=== PATIENT | female | born 1945 | race Asian ===

== ENCOUNTER → 2018-02-18 15:42 | Outpatient (CLI) | payer MEDICARE, SELFPAY ==
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
== END ==
PROVIDERS: Family Provider Internal Medicine; PCP Internal Medicine; Visit Provider Student in an Organized Health Care Education/Training Program
DX: M54.2 Cervicalgia (principal); M54.6 Pain in thoracic spine; I51.7 Cardiomegaly; R05 Cough; M50.322 Other cervical disc degeneration at C5-C6 level; M47.812 Spondylosis without myelopathy or radiculopathy, cervical region; M48.02 Spinal stenosis, cervical region; M51.36 Other intervertebral disc degeneration, lumbar region
CPT/HCPCS: 71046; 72050; 72072; 72100

== ENCOUNTER → 2018-02-25 10:17 | Outpatient (CLI) | payer MEDICARE, SELFPAY ==
[2018-02-25 11:02] LABS: Alanine Aminotransferase 33 IU/L (9-52); Albumin 4.8 g/dL (3.5-5.0); Albumin Globulin Ratio 1.3 (1.0-2.8); Alkaline Phosphatase 58 U/L (38-126); Aspartate Aminotransferase 35 IU/L (14-36); BUN Creatinine Ratio 18.8 (6-22); Bilirubin Total 0.5 mg/dL (0.2-1.3); Blood Urea Nitrogen 15 mg/dL (7-17); Calcium 9.7 mg/dL (8.4-10.2); Carbon Dioxide 32 mmol/L (22-32); Chloride 100 mmol/L (98-107); Cholesterol 142 mg/dL (140-199); Estimated Glomerular Filt Rate > 60.0 mL/min (>60); Globulin 3.8 g/dL (1.7-4.1); Glucose 111 mg/dL (80-110); HDL Cholesterol 47 mg/dL (40-60); HEMOLYSIS < 15 (0-50); LDL Cholesterol Calculated 73 mg/dL (<100); Magnesium 2.1 mg/dL (1.6-2.3); Potassium 4.6 mmol/L (3.4-5.1); Sodium 143 mmol/L (137-145); Total Protein 8.6 g/dL (6.3-8.2); Triglycerides 110 mg/dL (35-150)
[2018-02-25 11:31] LABS: Thyroid Stimulating Hormone 0.93 uIU/mL (0.47-4.68)
== END ==
PROVIDERS: Family Provider Internal Medicine; PCP Internal Medicine; Visit Provider Internal Medicine Cardiovascular Disease
DX: R00.2 Palpitations (principal); I47.1 Supraventricular tachycardia; I49.3 Ventricular premature depolarization; E78.5 Hyperlipidemia, unspecified; I10 Essential (primary) hypertension
CPT/HCPCS: 36415; 80053; 80061; 83735; 84443

== ENCOUNTER → 2018-05-19 10:00 | Outpatient (CLI) | payer MEDICARE, SELFPAY ==
[2018-05-19 11:07] LABS: Hemoglobin A1C% w Est Avg Glu 5.4 % (4.0-6.0)
[2018-05-19 11:14] LABS: Glucose 98 mg/dL (80-110)
[2018-05-21 15:55] LABS: BUN Creatinine Ratio 21.4 (6-22); Blood Urea Nitrogen 15 mg/dL (7-17); Carbon Dioxide 31 mmol/L (22-32); Chloride 101 mmol/L (98-107); Estimated Glomerular Filt Rate > 60.0 mL/min (>60); HEMOLYSIS < 15 (0-50); Potassium 4.9 mmol/L (3.4-5.1); Sodium 142 mmol/L (137-145)
== END ==
PROVIDERS: PCP Internal Medicine; Visit Provider Internal Medicine
DX: R73.01 Impaired fasting glucose (principal)
CPT/HCPCS: 36415; 80048; 82947; 83036

== ENCOUNTER → 2019-03-18 09:27 | Outpatient (CLI) | payer MEDICARE, SELFPAY ==
[2019-03-18 11:18] LABS: Alanine Aminotransferase 21 IU/L (<35); Aspartate Aminotransferase 34 IU/L (14-36); BUN Creatinine Ratio 21.4 (6-22); Blood Urea Nitrogen 15 mg/dL (7-17); Calcium 9.4 mg/dL (8.4-10.2); Carbon Dioxide 33 mmol/L (22-32); Chloride 100 mmol/L (98-107); Cholesterol 160 mg/dL (140-199); Estimated Glomerular Filt Rate > 60.0 mL/min (>60); Glucose 99 mg/dL (80-110); HDL Cholesterol 60 mg/dL (40-60); HEMOLYSIS < 15 (0-50); LDL Cholesterol Calculated 85 mg/dL (<100); Potassium 3.5 mmol/L (3.4-5.1); Sodium 141 mmol/L (137-145); Triglycerides 76 mg/dL (35-150)
== END ==
PROVIDERS: PCP Internal Medicine; Visit Provider Internal Medicine
DX: M85.851 Other specified disorders of bone density and structure, right thigh (principal); Z78.0 Asymptomatic menopausal state; E78.00 Pure hypercholesterolemia, unspecified; I10 Essential (primary) hypertension; Z90.722 Acquired absence of ovaries, bilateral; Z87.891 Personal history of nicotine dependence
CPT/HCPCS: 36415; 77080; 80048; 80061; 84450; 84460

== ENCOUNTER → 2020-01-29 15:17 | Outpatient (CLI) | payer MEDICARE, OTHER, SELFPAY ==
[2020-01-29 15:32] LABS: Bacteria Urine None Seen
[2020-01-29 17:46] LABS: Appearance Urine UA CLEAR; Bilirubin Urine UA NEGATIVE (NEGATIVE); Color Urine UA YELLOW; Glucose Urine UA NEGATIVE (Negative); Ketones Urine UA NEGATIVE (NEGATIVE); Leukocyte Esterase Urine UA NEGATIVE (NEGATIVE); Nitrite Urine UA NEGATIVE (Negative); Occult Blood Urine UA TRACE-INTACT (Negative); Protein Urine UA NEGATIVE (Negative); Urobilinogen Urine UA 0.2 E.U./dL (0.2)
[2020-01-29 17:52] LABS: Culture Indicated Urine Cult Not Indicated; RBC Urine 1-5/HPF (0-5/HPF); Squamous Epithelial Cell Urine 0-1 /HPF (0-5/HPF); WBC Urine 0-1/HPF (0-5/HPF)
== END ==
PROVIDERS: PCP Internal Medicine; Referring Provider Urology; Visit Provider Urology
DX: R39.9 Unspecified symptoms and signs involving the genitourinary system (principal)
CPT/HCPCS: 81001

== ENCOUNTER → 2021-01-20 14:41 | Outpatient (CLI) | payer MEDICARE, OTHER, SELFPAY ==
--- NOTE | 2021-01-20 | DI.RAD.S_ITS ---
PROCEDURE: XR DEXA AXIAL SKELETON INDICATIONS: Age-related osteoporosis without current pathologi COMPARISON: [facility], CR, XR DEXA AXIAL SKELETON, 03/18/2019, 9:55. FINDINGS: This blank DEXA report has been sent in error by the PACS system. The correct and complete report will be forthcoming in 1-2 days. Thank you for your patience and understanding. Dictated by: Giovanni Jimenes M.D. on 01/20/2021 at 16:39 Approved by: Giovanni Jimenes M.D. on 01/20/2021 at 16:39
--- NOTE | 2021-01-20 | DI.MG.S_ITS ---
BILATERAL DIGITAL SCREENING MAMMOGRAM 3D/2D WITH CAD: 01/20/2021 CLINICAL: Routine screening. Comparison is made to exams dated: 02/20/2017 mammogram, 03/22/2015 mammogram, and 11/13/2012 mammogram - [facility]. The tissue of both breasts is heterogeneously dense. This may lower the sensitivity of mammography. Current study was also evaluated with a Computer Aided Detection (CAD) system. No significant masses, calcifications, or other findings are seen in either breast. There has been no significant interval change. IMPRESSION: NEGATIVE There is no mammographic evidence of malignancy. A 1 year screening mammogram is recommended. This exam was interpreted at Station ID: [id number]. NOTE: For mammograms, a report in lay terms will be sent to the patient. Approximately 15% of breast malignancies will not be visualized mammographically. In the management of a palpable breast mass, a negative mammogram must not discourage biopsy of a clinically suspicious lesion. Electronically Signed By: Marianela morales/paul:01/20/2021 16:25:42 letter sent: Normal Exam ACR BI-RADS Category 1: Negative 3341F
== END ==
PROVIDERS: PCP Internal Medicine; Referring Provider Internal Medicine; Visit Provider Internal Medicine
DX: M81.0 Age-related osteoporosis without current pathological fracture (principal); Z12.31 Encounter for screening mammogram for malignant neoplasm of breast; Z78.0 Asymptomatic menopausal state; Z90.722 Acquired absence of ovaries, bilateral; Z87.891 Personal history of nicotine dependence
CPT/HCPCS: 77063; 77067; 77080

== ENCOUNTER → 2021-09-26 09:37 | Outpatient (CLI) | payer MEDICARE, OTHER, SELFPAY ==
[2021-09-26 10:48] LABS: Hematocrit 38.5 % (36-46); Hemoglobin 12.5 g/dL (12.0-16.0); Mean Corpuscular HGB Conc 32.4 % (30-36); Mean Corpuscular Hemoglobin 28.6 PG (26-34); Mean Corpuscular Volume 88.4 fL (80-100); Platelet Count 322 X10^3/uL (150-400); Red Blood Cell Count 4.35 X10^6/uL (4.0-5.2); Red Cell Distribution Width 13.6 % (11.6-14.8); White Blood Cell Count 4.9 X10^3/uL (4.5-11.0)
[2021-09-26 12:03] LABS: Alanine Aminotransferase 20 IU/L (<35); Albumin 4.4 g/dL (3.5-5.0); Albumin Globulin Ratio 1.3 (1.0-2.8); Alkaline Phosphatase 44 U/L (38-126); Aspartate Aminotransferase 33 IU/L (14-36); BUN Creatinine Ratio 21.9 (6-22); Bilirubin Total 0.7 mg/dL (0.2-1.3); Blood Urea Nitrogen 16 mg/dL (7-17); Calcium 8.8 mg/dL (8.4-10.2); Carbon Dioxide 29 mmol/L (22-32); Chloride 105 mmol/L (98-107); Cholesterol 170 mg/dL (140-199); Estimated Glomerular Filt Rate > 60 mL/min (>60); Globulin 3.5 g/dL (1.7-4.1); Glucose 103 mg/dL (80-110); HDL Cholesterol 57 mg/dL (40-60); HEMOLYSIS < 15 (0-50); LDL Cholesterol Calculated 88 mg/dL (<100); Potassium 3.6 mmol/L (3.4-5.1); Sodium 141 mmol/L (137-145); Total Protein 7.9 g/dL (6.3-8.2); Triglycerides 126 mg/dL (35-150)
[2021-09-26 12:16] LABS: Vitamin D 25 Hydroxy (D3) 47.1 ng/mL (30.0-100.0)
[2021-09-26 12:29] LABS: TSH w/ Reflex to FT4 1.43 uIU/mL (0.47-4.68)
== END ==
PROVIDERS: PCP Internal Medicine; Referring Provider Internal Medicine; Visit Provider Internal Medicine
DX: E78.2 Mixed hyperlipidemia (principal); M81.0 Age-related osteoporosis without current pathological fracture; I10 Essential (primary) hypertension
CPT/HCPCS: 36415; 80053; 80061; 82306; 84443; 85027

== ENCOUNTER → 2022-02-05 15:13 | Outpatient (CLI) | payer MEDICARE, OTHER, SELFPAY ==
[2022-02-05 17:22] LABS: Magnesium 2.2 mg/dL (1.6-2.3)
[2022-02-05 18:14] LABS: Thyroid Stimulating Hormone 1.06 uIU/mL (0.47-4.68)
== END ==
PROVIDERS: PCP Internal Medicine; Referring Provider Nurse Practitioner Family; Visit Provider Nurse Practitioner Family
DX: I47.1 Supraventricular tachycardia (principal); R00.2 Palpitations; I49.3 Ventricular premature depolarization; I10 Essential (primary) hypertension
CPT/HCPCS: 36415; 83735; 84443

== ENCOUNTER → 2022-04-23 09:16 | Outpatient (CLI) | payer MEDICARE, OTHER, SELFPAY ==
--- NOTE | 2022-07-22 09:45 | DI.ECHO.S_ITS ---
Interpretation Summary The left ventricle is normal in size and wall thickness. The ejection fraction is estimated to be 70-75%. Normal RV size and function. There is moderate mitral regurgitation. Previously trivial MR. No pulmonary with systolic reversal. There is moderate tricuspid regurgitation. Previously mild to moderate TR. The right ventricular systolic pressure is estimated to be at least 28 mmHg based on an estimated right atrial pressure of 3 mm Hg. Procedure: A two-dimensional transthoracic echocardiogram with color flow and Doppler was performed. The patient was in sinus bradycardia with heart rates between 53-62 bpm during the exam. Left Ventricle: The left ventricle is normal in size and wall thickness. There is no echo evidence for significant left ventricular outflow tract obstruction. There is no thrombus. The ejection fraction is estimated to be 70-75%. There are no focal wall motion abnormalities. MV E/A: 1.1 Med Peak E' Matthew: 5.8 cm/sec E/E' med: 19.5. Right Ventricle: The right ventricle is normal in size and function. Atria: The left atrial size is normal. Right atrial size is normal. There is no Doppler evidence for an interatrial shunt. Mitral Valve: The mitral valve leaflets appear mildly thickened, but open well. There is no evidence of mitral valve prolapse. There is no vegetation seen on the mitral valve. There is moderate mitral regurgitation. Compared to the prior echo study, there has been an increase in the severity of mitral regurgitation. Aortic Valve: The aortic valve is normal in structure and function. There is mild aortic valve sclerosis. The aortic valve is trileaflet. There is no aortic valve stenosis. There is trace aortic regurgitation. Tricuspid Valve: The tricuspid valve is normal. There is moderate tricuspid regurgitation. The right ventricular systolic pressure is estimated to be at least 28 mmHg based on an estimated right atrial pressure of 3 mm Hg. Pulmonic Valve: The pulmonic valve leaflets are thin and pliable; valve motion is normal. There is trace pulmonic regurgitation. Great Vessels: The aortic root is normal size. The dimensions of the ascending aorta are normal. The IVC is of normal diameter and collapses greater than 50% with a sniff. This suggests a low right atrial pressure of 3 mm Hg. Pericardium/ Pleura There is no pericardial effusion. There is an anterior echo-free space consistent with a fat pad. There is no pleural effusion. MMode/2D Measurements & Calculations LVIDd: 4.1 cm LVOT diam: 1.8 cm LVIDs: 2.4 cm Ao root diam: 2.9 cm FS: 41.5 % asc Aorta Diam: 3.4 cm EPSS: 0.30 cm Ao Arch Diam (Prox Trans): 2.1 cm IVSd: 0.90 cm LVPWd: 0.90 cm LV ayala. diameter/BSA (cm/m^2): 2.7 LV sys. diameter/BSA (cm/m^2): 1.6 LA dimension: 3.8 cm RA long axis: 3.9 cm LA A2 area: 15.5 cm2 RA area: 12.3 cm2 LA A4 area: 15.8 cm2 RA vol: 33.4 ml LA length (vol): 4.8 cm RA : 21.7 ml/m2 LA vol: 43.2 ml LA vol index: 28.1 ml/m2 LVLs ap4: 3.8 cm LVLd ap2: 6.1 cm LVLs ap2: 4.4 cm TAPSE_phl: 2.1 cm Doppler Measurements & Calculations Ao V2 max: 123.0 cm/sec LVOT Max Matthew: 80.0 cm/sec Ao V2 mean: 83.0 cm/sec LV V1 max P.6 mmHg Ao max P.0 mmHg LV V1 VTI: 18.8 cm Ao mean P.0 mmHg GILBERTO(I,D): 1.6 cm2 Ao V2 VTI: 29.1 cm GILBERTO(V,D): 1.7 cm2 sev ratio: 0.65 GILBERTO indexed to BSA (cm^2/m^2): 1.1 MV E max matthew: 113.0 cm/sec TR max matthew: 251.0 cm/sec MV A max matthew: 99.0 cm/sec TR max P.2 mmHg MV E/A: 1.1 PA V2 max: 70.7 cm/sec Med Peak E' Matthew: 5.8 cm/sec PA V2 mean: 51.2 cm/sec E/E' med: 19.5 PA mean P.0 mmHg Lat Peak E' Matthew: 8.5 cm/sec E/E' lat: 13.3 E/e' average: 16.4 MV dec time: 0.24 sec MVA(VTI): 1.5 cm2 MV V2 mean: 51.0 cm/sec MR VTI: 191.0 cm MV mean P.0 mmHg MV V2 VTI: 32.8 cm SV(LVOT): 47.8 ml AV VR_phl: 0.65 GILBERTO(VTI)/BSA_phl: 1.1 MV P1/2t-pr_phl: 70.0 msec Reading Physician:10:05 AM
== END ==
PROVIDERS: PCP Internal Medicine; Referring Provider Nurse Practitioner Family; Visit Provider Nurse Practitioner Family
DX: I08.3 Combined rheumatic disorders of mitral, aortic and tricuspid valves (principal); I47.1 Supraventricular tachycardia; I49.3 Ventricular premature depolarization; I10 Essential (primary) hypertension; R00.2 Palpitations
CPT/HCPCS: 93306

== ENCOUNTER → 2022-05-23 11:25 | Outpatient (CLI) | payer MEDICARE, OTHER, SELFPAY ==
[2022-05-23 12:36] LABS: BUN Creatinine Ratio 20.2 (6-22); Blood Urea Nitrogen 17 mg/dL (7-17); Calcium 9.3 mg/dL (8.4-10.2); Carbon Dioxide 31 mmol/L (22-32); Chloride 102 mmol/L (98-107); Estimated Glomerular Filt Rate > 60 mL/min (>60); Glucose 98 mg/dL (80-110); HEMOLYSIS < 15 (0-50); Magnesium 2.1 mg/dL (1.6-2.3); Potassium 4.4 mmol/L (3.4-5.1); Sodium 140 mmol/L (137-145)
== END ==
PROVIDERS: PCP Internal Medicine; Referring Provider Internal Medicine Cardiovascular Disease; Visit Provider Internal Medicine Cardiovascular Disease
DX: I10 Essential (primary) hypertension (principal); R00.2 Palpitations
CPT/HCPCS: 36415; 80048; 83735

== ENCOUNTER → 2022-05-30 12:16 | Outpatient (CLI) | payer MEDICARE, OTHER, SELFPAY | PROVIDERS: PCP Internal Medicine; Visit Provider Registered Nurse | DX: R39.15 Urgency of urination (principal) | CPT/HCPCS: 87086 ==

== ENCOUNTER → 2022-06-14 12:08 | Outpatient (CLI) | payer MEDICARE, OTHER, SELFPAY ==
--- NOTE | 2022-06-14 12:10 | DI.MRI.S_ITS ---
PROCEDURE: MR HEAD/BRAIN WO CON INDICATIONS: Family hx of ischemic heart disease, headache TECHNIQUE: Non-contrast axial T1 spin echo, axial T2 fast spin echo, sagittal and axial FLAIR, coronal T2 fast spin echo, axial gradient echo, axial diffusion and ADC through the brain. COMPARISON: None. FINDINGS: Image quality: Excellent. CSF spaces: Ventricles appear symmetric in size and shape. Basal cisterns are patent. No extra-axial fluid collections. Brain: No intracranial bleeds or mass effects. There is cerebral volume loss for age. There are periventricular and deep white matter chronic small vessel ischemic changes. Brainstem appears normal. Diffusion-weighted images show no acute ischemic insults. No chronic ischemic insults. Normal intravascular flow voids are present. Skull and face: Calvarial bone marrow is normal in signal. Orbits are normal. Sinuses: Sinuses and mastoids are clear. IMPRESSION: 1. Volume loss and small vessel ischemic disease. 2. No acute process. No recent infarct. Dictated by: Janis Elizalde M.D. on 06/14/2022 at 13:56 Transcribed by: CHRISTA on 06/14/2022 at 13:56 Approved by: Janis Elizalde M.D. on 06/14/2022 at 16:36
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
== END ==
PROVIDERS: PCP Internal Medicine; Referring Provider Internal Medicine; Visit Provider Internal Medicine
DX: R51.9 Headache, unspecified (principal); Z82.49 Family history of ischemic heart disease and other diseases of the circulatory system
CPT/HCPCS: 70544; 70551

== ENCOUNTER → 2022-06-26 11:02 | Outpatient (CLI) | payer MEDICARE, OTHER, SELFPAY ==
--- NOTE | 2022-06-26 | DI.MG.S_ITS ---
BILATERAL DIGITAL SCREENING MAMMOGRAM 3D/2D WITH CAD: 06/26/2022 CLINICAL: Routine screening. Comparison is made to exams dated: 01/20/2021 mammogram, 02/20/2017 mammogram, and 03/22/2015 mammogram - [facility]. Both breasts are heterogeneously dense, which may obscure small masses (category c / 51-75% glandular tissue). Current study was also evaluated with a Computer Aided Detection (CAD) system. No significant masses, calcifications, or other findings are seen in either breast. There has been no significant interval change. IMPRESSION: NEGATIVE There is no mammographic evidence of malignancy. A 1 year screening mammogram is recommended. Based on the Tyrer Cuzick model (a risk assessment model) the patient's lifetime risk is 2.9% and her 10 year risk is 0.0%. According to the ACR, ACS, and NCCN guidelines, an annual breast MRI exam along with mammogram is recommended if the patient's lifetime risk is 20% or greater. This exam was interpreted at Station ID: [id number]. NOTE: For mammograms, a report in lay terms will be sent to the patient. Approximately 15% of breast malignancies will not be visualized mammographically. In the management of a palpable breast mass, a negative mammogram must not discourage biopsy of a clinically suspicious lesion. Electronically Signed By: Neymar landry/paul:06/26/2022 16:30:03 letter sent: Normal Exam ACR BI-RADS Category 1: Negative 3341F
== END ==
PROVIDERS: PCP Internal Medicine; Referring Provider Internal Medicine; Visit Provider Internal Medicine
DX: Z12.31 Encounter for screening mammogram for malignant neoplasm of breast (principal)
CPT/HCPCS: 77063; 77067

== ENCOUNTER → 2022-11-13 11:12 | Outpatient (CLI) | payer MEDICARE, OTHER, SELFPAY ==
--- NOTE | 2022-11-13 | DI.CT.S_ITS ---
PROCEDURE: CT IVP A/P W/WO INDICATIONS: Other microscopic hematuria TECHNIQUE: Optional 5 mm thick noncontrast images acquired from the diaphragm to the symphysis pubis. After the administration of intravenous contrast, 5 mm thick images acquired from the diaphragm to the symphysis pubis after a 10-minute delay. 2 mm thick coronal and sagittal reformats were then performed of the kidneys and ureters. For radiation dose reduction, the following was used: automated exposure control, adjustment of mA and/or kV according to patient size. COMPARISON: No prior relevant studies are available for review at the time of this dictation. FINDINGS: Image quality: Excellent. Lung bases: Lung bases are clear. Heart size is normal. Urinary system: Along the anterior aspect of the right kidney superiorly, there is an irregularly enhancing partially exophytic mass that measures 2.6 x 2.8 cm in greatest axial dimension, with a craniocaudal extent of 2.9 cm. No additional suspicious renal lesions are seen. On precontrast imaging, no stones are seen. No hydronephrosis can be seen. The kidneys enhance symmetrically. The ureters are unremarkable. No significant bladder abnormality is seen. Other solid organs: Along the left lateral aspect of the liver, there is a mildly hyperenhancing lesion seen that measures up to 1.8 cm. Gallbladder demonstrates no significant abnormality. Biliary system is non dilated. Pancreas enhances normally. Spleen is normal in size and enhancement. No adrenal nodules. Peritoneum and bowel: Bowel loops demonstrate normal wall thickness and caliber. No free fluid or air. A normal appendix is noted. Nodes and vessels: No retroperitoneal or mesenteric adenopathy by size criteria. Aorta and inferior vena cava are normal in size. Atherosclerotic calcification is noted. Abdominal wall: No ventral hernias. Pelvis: No pathologic free pelvic fluid. No inguinal hernias or adenopathy. This patient is status post hysterectomy. No adnexal masses are seen. Bones: No suspicious bony lesions. No vertebral body compression fractures. Mild levoconvex scoliotic curvature is noted. Focal L4-L5 degenerative change can be seen. Milder degenerative changes are seen elsewhere. IMPRESSION: There is a 2.9 cm right renal mass seen, which is highly suspicious for renal cell carcinoma. 1.8 cm hyperenhancing lesion seen along the left lateral aspect of the liver. While metastatic disease is possible, hemangioma is considered to be more likely. - Please consider a follow-up dedicated ultrasound versus MRI of the liver for further evaluation. No additional potential findings of metastatic disease can be seen on this study. Additional findings: Normal appendix Hysterectomy Dictated by: Davin Manzano M.D. on 11/19/2022 at 16:55 Approved by: Davin Manzano M.D. on 11/19/2022 at 17:01
[2022-11-13 11:48] LABS: Estimated Glomerular Filt Rate > 60 mL/min (>60)
== END ==
PROVIDERS: Radiology Diagnostic Radiology; PCP Internal Medicine; Referring Provider Urology; Visit Provider Urology
DX: N28.89 Other specified disorders of kidney and ureter (principal); R31.29 Other microscopic hematuria; K76.9 Liver disease, unspecified; Z90.710 Acquired absence of both cervix and uterus
CPT/HCPCS: 36415; 74178; 82565; Q9967

== ENCOUNTER → 2022-12-11 11:19 | Outpatient (CLI) | payer MEDICARE, OTHER, SELFPAY ==
--- NOTE | 2022-12-11 | DI.MRI.S_ITS ---
PROCEDURE: MR ABDOMEN RENAL PROTOCOL INDICATIONS: RENAL MASS TECHNIQUE: Coronal HASTE through abdomen and pelvis; axial 2D FLASH in- and [id number]-ji-[id number] (with and without fat saturation), and breath-hold T2 FSE from the hepatic dome to the bottom of the kidneys. Coronal HASTE MR urogram of kidneys and bladder. Dynamic coronal VIBE during IV gadolinium administration; postgadolinium axial VIBE or 2D FLASH with fat saturation from the hepatic dome through the kidneys. COMPARISON: [facility], CT, CT IVP A/P W/WO, 11/13/2022, 12:06. FINDINGS: Image quality: Good Lower chest: Lungs are not well evaluated on MRI. There may be basal atelectasis. No pleural effusions. No hiatal hernia. Normal heart size. Solid organs: As seen on prior CT, there is far left lobe hypervascular lesion measuring about 2 centimeters. There is T2 hyperintensity and contrast accumulation on delayed phases. No other suspicious liver lesion identified. Evaluation on this study is limited due to the protocol used (renal not liver). Gallbladder is unremarkable. No pathologic dilation of the biliary tree or pancreatic duct. No splenomegaly. No adrenal nodules. No macroscopic thrombus in the right renal vein. Hypervascular right superior pole anterior mass measures 2.7 by 2.4 by 3.0 centimeters, in close proximity to the anterior pararenal fascia. Small cystic components are present. This lesion is favored to contain fat, given chemical shift artifact on short TE images. No hydronephrosis. There are small renal cysts. Vessels and lymph nodes: No pathologic lymph nodes by size criteria. No abdominal aortic aneurysm. The main portal vein appears patent. Bowel and peritoneum: No evidence of small bowel obstruction or pathologic ascites. Body wall: Unremarkable Pelvis: Bladder appears unremarkable on these large [id number]-[id number] images with limited resolution. Uterus is not seen. Bones: No acute or suspicious osseous finding. 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 Limited resolution to evaluate the hypervascular far left lobe liver lesion on this renal protocol MRI. This is probably a hemangioma, attention on follow-up. Dictated by: Kendell Blackburn M.D. on 12/11/2022 at 13:25 Approved by: Kendell Blackburn M.D. on 12/11/2022 at 13:37
== END ==
PROVIDERS: PCP Internal Medicine; Referring Provider Urology; Visit Provider Urology
DX: N28.89 Other specified disorders of kidney and ureter (principal)
CPT/HCPCS: 74183

== ENCOUNTER → 2022-12-18 11:26 | Outpatient (CLI) | payer MEDICARE, OTHER, SELFPAY ==
--- NOTE | 2022-12-18 | DI.RAD.S_ITS ---
Bone Density Report Name: ISRAEL VELASQUEZ Age: 77 Sex: Female Ethnicity: Date of : 1945 Indication: osteopenia; monitoring treatment; Referring Provider: ELSA LEWIS Study: Bone densitometry was performed. Exam Date: December 18, 2022 Accession number: [id number] Bone Density: Region BMD T-score Z-score Classification AP Spine(L1, L2, L3) 0.752 -2.4 0.1 Osteopenia Femoral Neck (Left) 0.606 -2.2 0.0 Osteopenia Total Hip (Left) 0.729 -1.7 0.2 Osteopenia Femoral Neck (Right) 0.605 -2.2 0.0 Osteopenia Total Hip (Right) 0.721 -1.8 0.2 Osteopenia Total Hip Mean 0.725 -1.8 0.2 Osteopenia World Health Organization criteria for BMD impression classify patients as: Normal (T-score at or above -1.0), Osteopenia (T-score between -1.0 and -2.5), or Osteoporosis (T-score at or below -2.5). 10-year Fracture Risk: FRAX not reported because: Treated for osteoporosis Previous Exams: -- Region Exam Age BMD T-score BMD Change BMD Change Date g/cm2 vs Baseline vs Previous -- AP Spine (L1-L3) 12/18/2022 77 0.752 -2.4 -0.013 (-1.7%)# -0.013 (-1.7%)# 01/20/2021 75 0.765 -2.3 Total Hip(Left) 12/18/2022 77 0.729 -1.7 0.034 (5.0%)# 0.034 (5.0%)# 01/20/2021 75 0.695 -2.0 Total Hip(Right) 12/18/2022 77 0.721 -1.8 0.054 (8.0%)# 0.054 (8.0%)# 01/20/2021 75 0.667 -2.3 -- *Denotes significance at 95% confidence level, LSC for AP Spine = 0.022 g/cm2, LSC for Total Hip = 0.027 g/cm2 # Denotes dissimilar scan types or analysis methods Impression: The patient has low bone mass, based on the Total Spine T-score. No significant bone loss was observed. Discussion: PATIENT UNDER TREATMENT WITH NO SIGNIFICANT BMD LOSS SINCE LAST EXAM. In an untreated patient, BMD typically declines with age. A lack of decline or gain is usually a sign that treatment is efficacious and fracture risk is reduced. It is important to ask patients whether they are taking their medications and to encourage continued and appropriate compliance with their osteoporosis therapies to reduce fracture risk. It is also important to review their risk factors and encourage appropriate calcium and vitamin D intakes, exercise, fall prevention and other lifestyle measures. Follow-Up: Consider a repeat BMD and Vertebral Fracture Assessment (VFA) exam in 2 years or sooner if medically necessary, to reassess this patient's status. Reported by: JOHN JOHNSON M.D. on 12/18/2022 11:57:00 AM.
== END ==
PROVIDERS: PCP Internal Medicine; Referring Provider Internal Medicine; Visit Provider Internal Medicine
DX: M81.0 Age-related osteoporosis without current pathological fracture (principal); Z78.0 Asymptomatic menopausal state; Z90.710 Acquired absence of both cervix and uterus; Z79.83 Long term (current) use of bisphosphonates; Z85.528 Personal history of other malignant neoplasm of kidney; Z92.21 Personal history of antineoplastic chemotherapy
CPT/HCPCS: 77080

== ENCOUNTER → 2023-07-16 09:05 | Outpatient (CLI) | payer MEDICARE, OTHER, SELFPAY ==
--- NOTE | 2023-07-16 09:07 | DI.US.S_ITS ---
PROCEDURE: US RENAL COMPLETE INDICATIONS: RIGHT RENAL MASS LATE 6 MONTH FOLLOW UP. NO H/O BIOPSY. TECHNIQUE: Real-time scanning was performed of the kidneys and bladder, with image documentation. COMPARISON: [facility], CT, CT IVP A/P W/WO, 11/13/2022, 12:06. [facility], MR, MR ABDOMEN RENAL PROTOCOL, 12/11/2022, 11:28. FINDINGS: Kidneys: Kidneys are normal in size. Right kidney measures 10.4 cm long; left kidney measures 10 cm long. Right renal cortical thickness is 1.3 cm; left renal cortical thickness is 1.4 cm. Renal cortical echotexture is normal. No hydronephrosis or nephrolithiasis. Right kidney demonstrates an upper pole heterogeneous, predominantly solid mass with internal vascularity measuring 3.1 x 2.7 x 2.5 cm, previously 3 x 2.4 x 2.7 cm on MRI dated December 11, 2022 and remotely 2.6 x 2.8 x 2[address] IVP dated November 19 Left kidney demonstrates an anechoic simple cyst measuring 0.5 x 0.5 x 0.5 cm. Query an additional anechoic simple cyst in the anterior 0 inferior pole measuring 0.7 x 0.5 x 0.6 cm no complex cystic lesions which require follow-up. Bladder: Pre-void bladder volume is 27 mL. Given suboptimal prep, evaluation of the bladder is limited. Miscellaneous: No free pelvic fluid. IMPRESSION: 1. Compared to MRI dated December 11, 2022, accounting for differences in technique, similar size of right upper pole heterogeneous mass with internal vascularity measuring 3.1 x 2.7 x 2.5 cm, previously 3 x 2.4 x 2.7 cm. 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 2. No hydronephrosis bilaterally. 3. Bladder is decompressed, limiting evaluation. Dictated by: Gimra Dash M.D. on 07/16/2023 at 16:57 Approved by: Girma Dash M.D. on 07/16/2023 at 17:20
== END ==
PROVIDERS: PCP Internal Medicine; Referring Provider Urology; Visit Provider Urology
DX: N28.89 Other specified disorders of kidney and ureter (principal); N28.1 Cyst of kidney, acquired
CPT/HCPCS: 76770

== ENCOUNTER → 2023-09-18 12:45 | Outpatient (CLI) | payer MEDICARE, OTHER, SELFPAY ==
[2023-09-18 18:30] LABS: Appearance Urine UA CLEAR; Bilirubin Urine UA NEGATIVE (NEGATIVE); Color Urine UA YELLOW; Glucose Urine UA NEGATIVE (Negative); Ketones Urine UA NEGATIVE (NEGATIVE); Leukocyte Esterase Urine UA TRACE (NEGATIVE); Nitrite Urine UA NEGATIVE (Negative); Occult Blood Urine UA 1+ (Negative); Protein Urine UA NEGATIVE (Negative); Specific Gravity Urine UA 1.015 (1.000-1.035); Urobilinogen Urine UA 0.2 E.U./dL (0.2)
[2023-09-18 18:39] LABS: Bacteria Urine Occasional (0-1); RBC Urine 1-5/HPF (0-5/HPF); Squamous Epithelial Cell Urine 1-5 /HPF (0-5/HPF); Urine Volume 10mL (spun); WBC Urine 1-5/HPF (0-5/HPF)
[2023-09-18 18:40] LABS: Culture Indicated Urine Cult Not Indicated; Mucus Urine 1+ (Negative)
== END ==
PROVIDERS: PCP Internal Medicine; Referring Provider Family Medicine; Visit Provider Family Medicine
DX: R39.9 Unspecified symptoms and signs involving the genitourinary system (principal)
CPT/HCPCS: 81001; 87086

== ENCOUNTER 2024-05-20 09:52 | Day surgery (SDC) | payer MEDICARE, OTHER, SELFPAY ==
[2024-05-20 10:21] VITALS: BP 123/74; PULSE 94; RESP 16; TEMP 36.9; O2SAT 97
--- NOTE | 2024-05-20 10:38 | PM.OP.COLON ---
Operative Date/Time/Diagnoses Date of procedure: 05/20/24 Pre-op diagnosis: See indication and findings Procedure & Clinicians Study performed: Colonoscopy Indications: 1 episode of rectal bleeding with history of changing bowel movements. Last colonoscopy 9 years ago Surgeon: Moises Goldberg Procedure Notes Procedure in detail: After informed consent was obtained the patient was placed in left lateral decubitus position. The video colonoscope was introduced the rectum slowly advanced cecum. On slow withdrawal mucosa was carefully examined. Preparation was good. The scope was removed. The patient tolerated procedure well. Blood loss none Complications none Sedation mac Findings 1. Mild internal hemorrhoids 2. Otherwise negative colonoscopy to cecum Given the patient's age she does not need follow-up colonoscopy routinely.
--- NOTE | 2024-05-20 10:39 | P.HP_ITS ---
History of Present Illness History of Present Illness Date Patient Seen: 05/20/24 Chief complaint: Dx Colonoscopy w/poss bx Narrative: Change in bowel movements with 1 episode of rectal bleeding. Last colonoscopy 9 years ago. [facility] Medical History Age-related osteoporosis without current pathological fracture Bee sting allergy Chicken pox (~1962) Eczema (~1949) Essential hypertension (~1999) Fibroids (~1994) Frequent UTI (~1992) Hearing loss Heavy menstrual period History of melanoma History of urinary incontinence (~2020) Macular degeneration Measles Medicare annual wellness visit, initial Mixed hyperlipidemia Ovarian cyst (~1994) Slow transit constipation SVT (supraventricular tachycardia) Surgical History Anesthesia History of bladder surgery History of hysterectomy (~1994) Family History Father History of heart disease Hypertension Mother Diabetes mellitus History of heart disease Hypertension Sister Hypertension Grandfather History of heart disease Grandmother Parkinson's disease Grandmother History of heart disease Social History Smoking Status: Former smoker alcohol intake: current Meds Home Medications and Allergies Home Medications Medication Instructions Recorded Confirmed Type epinephrine 0.3 mg/0.3 mL 0.3 mg (0.3 mL) INJ X1 #1 ea 12/18/15 05/30/22 Rx injection, auto-injector (EpiPen 2-Henry) calcium 600 mg (as 1 cap PO BID 09/14/21 05/20/24 History carbonate)-vitamin D3 12.5 mcg (500 unit) capsule triamcinolone acetonide 0.1 % 1 applic topical DAILY PRN 09/14/21 05/30/22 History topical cream denosumab 60 mg/mL subcutaneous 60 mg SUBCUT [id number] #1 mL 01/02/22 05/30/22 Rx syringe (Prolia) losartan 100 mg tablet 100 mg PO DAILY #90 tabs 01/11/22 05/20/24 Rx metoprolol succinate 50 mg 50 mg PO DAILY #90 tabs 01/11/22 05/20/24 Rx tablet,extended release 24 hr simvastatin 10 mg tablet 10 mg PO DAILY #90 tabs 01/11/22 05/20/24 Rx vit C 250 mg-vit E 200 unit-zinc 1 cap PO DAILY 01/15/22 05/30/22 History ox 12.5 kp-hyyisa-mlqedt-zeax capsule (ICaps AREDS2) zolpidem 5 mg tablet 5 mg PO BEDTIME PRN 01/15/22 05/30/22 History amlodipine 5 mg tablet 5 mg PO DAILY #90 tabs 01/17/22 05/20/24 Rx Allergies Allergy/AdvReac Type Severity Reaction Status Date / Time Latex, Natural Rubber Allergy Intermediate Verified 05/20/24 10:19 [LATEX, NATURAL RUBBER] bee venom protein (honey bee) Allergy Unknown ANAPHYLAXIS Verified 05/20/24 10:19 [BEE VENOM PROTEIN (HONEY BEE)] codeine [CODEINE] AdvReac Unknown NAUSEA Verified 05/20/24 10:19 METALS Allergy Unknown Uncoded 05/20/24 10:19 Exam Vital Signs (past 8 hours): - 05/20/24 10:21 Temperature 98.4 F Pulse Rate 94 H Respiratory Rate 16 Blood Pressure 123/74 Pulse Oximetry 97 Oxygen Delivery Method Room Air Oxygen Delivery Method Room Air Narrative Exam Narrative: Oropharynx free of lesions Chest clear to auscultation percussion Cardiac exam reveals no S3 or murmur Assessment & Plan Assessment & Plan narrative: Episode of rectal bleeding with abnormal changing bowel movements. Previous colonoscopy negative. Risks, benefits, alternatives have been explained. Time-Based Coding :: [TOTAL MINUTES] spent with patient and on the chart (including review of chart, obtaining history, exam, reviewing outside data, placing orders, documenting exam and treatment plan, and counseling patient) on [DATE].
[2024-05-20 11:35] VITALS: BP 99/54; PULSE 84; RESP 19; TEMP 36.2; O2SAT 97
[2024-05-20 11:41] VITALS: BP 109/59; PULSE 80; RESP 18; TEMP 36.2; O2SAT 99
[2024-05-20 11:46] VITALS: BP 104/65; PULSE 82; RESP 18; TEMP 36.2; O2SAT 98
[2024-05-20 11:52] VITALS: BP 105/70; PULSE 79; RESP 18; TEMP 36.2; O2SAT 97
== END 2024-05-20 12:15 | disposition home or self-care (01) ==
PROVIDERS: PCP Internal Medicine; Referring Provider Internal Medicine Gastroenterology; Visit Provider Internal Medicine Gastroenterology
PROC: 0DJD8ZZ Inspection of Lower Intestinal Tract, Via Natural or Artificial Opening Endoscopic (ICD-10-PCS; CPT 45378; principal; 2024-05-20 11:00)
DX: K62.5 Hemorrhage of anus and rectum (principal); R19.4 Change in bowel habit; Z87.891 Personal history of nicotine dependence; K64.8 Other hemorrhoids
CPT/HCPCS: 45378; J2704

== ENCOUNTER → 2024-12-30 14:44 | Outpatient (CLI) | payer MEDICARE, OTHER, SELFPAY ==
--- NOTE | 2024-12-30 14:47 | DI.MG.S_ITS ---
MM screening mammo BI: 12/30/2024. BI-RADS: 1 CLINICAL: 79-year old female for bilateral screening mammogram. Tyrer-Cuzick lifetime risk of 1.1%. No personal or first-degree family history of breast cancer. PRIOR EXAMS 06/26/2022, 01/20/2021, 02/20/2017, 03/22/2015. MAMMOGRAPHY TECHNIQUE: 2D and 3D (tomosynthesis) digital mammographic views obtained, with additional images as needed for full coverage. Current study was also evaluated with a Computer Aided Detection (CAD) system. DENSITY C. The breasts are heterogeneously dense, which may obscure small masses. MAMMOGRAPHY FINDINGS Bilateral: No suspicious mass, asymmetry, microcalcification, or other abnormality seen. IMPRESSION: * No evidence of malignancy. RECOMMENDATIONS Bilateral * Annual screening mammography. OVERALL ASSESSMENT CATEGORY BI-RADS-1: Negative. The [employer] recommends annual screening mammography beginning at age 40 for women with average risk of breast cancer. ELECTRONICALLY SIGNED: Neymar Culver M.D. on 01/03/2025 at 07:01:42 AM PT Interpreting Station ID: [id number]
--- NOTE | 2024-12-30 14:48 | DI.RAD.S_ITS ---
PROCEDURE: XR DEXA AXIAL SKELETON INDICATIONS: osteoporosis screening COMPARISON: [facility], CR, XR DEXA AXIAL SKELETON, 12/18/2022, 11:43. [facility], CR, XR DEXA AXIAL SKELETON, 01/20/2021, 16:17. FINDINGS: Lumbar Spine: Bone mineral density 0.810 g/cm2, T score -2.2, no significant change compared to prior. Left Femoral Neck: Bone mineral density 0.620 g/cm2, T score -2.1. Left Hip: Bone mineral density 0.723 g/cm2, T score -1.8, no significant change compared to prior. Fracture Risk Calculation (when applicable): 10-year fracture risk of a major osteoporotic fracture 9.1 percent and of a hip fracture 2.8 percent. (T score greater or equal to -1.0 to: NORMAL) (T score from -1.1 to -2.4: OSTEOPENIA) (T score less than or equal to -2.5: OSTEOPOROSIS) IMPRESSION: Low bone mineral density (osteopenia) by WHO classification. Follow-up guidelines as follows: Osteoporosis: Consider a repeat DEXA and Vertebral Fracture Assessment (VFA) exam in 2 years or sooner if medically necessary, to reassess this patient's status. Osteopenia: Consider a repeat DEXA in 2-3 years to reassess this patient's status, or if there is a new clinical indication. Normal: Consider a repeat DEXA in 5 years or sooner, or if there is a new clinical indication. All treatment decisions require clinical judgment and consideration of individual patient factors, including patient preferences, comorbidities, previous drug use, risk factors not captured in the FRAX model (e.g., frailty, falls, vitamin D deficiency, increased bone turnover, interval significant decline in bone density ) and possible under- or over-estimation of fracture risk by FRAX. In addition, the NOF Guide recommends that FDA-approved medical therapies be considered in postmenopausal women and men age >= 50 years with a: * Hip or vertebral (clinical or morphometric) fracture * T-score of <=-2.5 at the spine or hip * Ten-year fracture probability by FRAX of >= 3% for hip fracture or >=20% for major osteoporotic fracture. Dictated by: Galileo Harris M.D. on 12/30/2024 at 16:14 Approved by: Galileo Harris M.D. on 12/30/2024 at 16:15
== END ==
LOC: RAD 14:47
PROVIDERS: PCP Internal Medicine; Referring Provider Internal Medicine; Visit Provider Internal Medicine
DX: Z12.31 Encounter for screening mammogram for malignant neoplasm of breast (principal); R92.333 Mammographic heterogeneous density, bilateral breasts; M81.0 Age-related osteoporosis without current pathological fracture
CPT/HCPCS: 77063; 77067; 77080

== ENCOUNTER → 2025-01-20 13:52 | Outpatient (CLI) | payer MEDICARE, OTHER, SELFPAY ==
--- NOTE | 2025-01-20 13:53 | DI.ECHO.S_ITS ---
[facility] : : [id number] : [place] : : [id number] : : Phone: [phone] Echocardiogram Report + + :Name: ISRAEL VELASQUEZ Study Date: 01/20/2025 Height: 62 in : :[facility] ReadingLocation: Weight: 120 lb : : Gender: Female BSA: 1.5 m2 : :: 1945 Age: 79 yrs BP: 132/73 mmHg: :Reason For Study: TRICUSPID AND MITRAL VALVE REGURGITATION : :Ordering Physician: SOFÍA, : :TALIA Performed By: Carlos Carty : :Referring: TALIA GORE : + + Interpretation Summary The left ventricle is normal in size. The left ventricle is hyperdynamic. The ejection fraction is estimated to be 75-80%. Previous LVEF 70 to 75%. No significant LV outflow tract obstruction. The right ventricle is normal in size and function. There is mild mitral regurgitation. Previously moderate MR. There is mild tricuspid regurgitation. Previously moderate TR. The right ventricular systolic pressure is estimated to be at least 37 mmHg based on an estimated right atrial pressure of 3 mm Hg. Previously 28 mmHg. Procedure: A two-dimensional transthoracic echocardiogram with color flow and Doppler was performed. The study quality was technically good. Comparison is made with the echocardiogram of 04/23/2022. The patient was in normal sinus rhythm during the exam. Left Ventricle: The left ventricle is normal in size. Left ventricular wall thickness is mildly increased. There is no ventricular septal defect visualized. There is no thrombus. The ejection fraction is estimated to be 75- 80%. The left ventricle is hyperdynamic. There are no focal wall motion abnormalities. Diastolic parameters suggest a relaxation abnormality of the left ventricle, consistent with probable normal filling pressures. Right Ventricle: The right ventricle is normal in size and function. Atria: The left atrial size is normal. There has been no significant change since the previous study. Right atrial size is normal. There is no Doppler evidence for an interatrial shunt. Mitral Valve: There is mild mitral annular calcification. There is mild mitral regurgitation. Aortic Valve: The aortic valve is trileaflet. The aortic valve opens well. The aortic valve is slightly calcified. There is no aortic valve stenosis. No aortic regurgitation is present. Tricuspid Valve: The tricuspid valve is normal. There is mild tricuspid regurgitation. The right ventricular systolic pressure is estimated to be at least 37 mmHg based on an estimated right atrial pressure of 3 mm Hg. Pulmonic Valve: The pulmonic valve is not well seen, but is grossly normal. There is trace pulmonic regurgitation. Great Vessels: The aortic root is normal size. The dimensions of the ascending aorta are normal. The pulmonary artery is normal size. The IVC is of normal diameter and collapses greater than 50% with a sniff. This suggests a low right atrial pressure of 3 mm Hg. Pericardium/ Pleura There is no pericardial effusion. There is no pleural effusion. MMode/2D Measurements & Calculations LVIDd: 4.3 cm LVOT diam: 1.9 cm LVIDs: 2.4 cm Ao root diam: 3.0 cm FS: 45.4 % asc Aorta Diam: 3.5 cm EPSS: 0.55 cm IVSd: 1.1 cm LVPWd: 1.1 cm LV ayala. diameter/BSA (cm/m^2): 2.8 LV sys. diameter/BSA (cm/m^2): 1.5 LA A2 area: 18.6 cm2 RA long axis: 4.9 cm LA A4 area: 16.9 cm2 RA area: 16.6 cm2 LA length (vol): 5.0 cm RA vol: 47.7 ml LA vol: 53.9 ml RA : 31.0 ml/m2 LA vol index: 35.0 ml/m2 IVC diam: 1.5 cm RVD1 (basal): 3.7 cm RVD2 (mid): 2.7 cm TAPSE: 2.1 cm Doppler Measurements & Calculations Ao V2 max: 183.0 cm/sec LVOT Max Matthew: 123.7 cm/sec Ao V2 mean: 128.1 cm/sec LV V1 max P.1 mmHg Ao max P.4 mmHg LV V1 VTI: 27.2 cm Ao mean P.4 mmHg GILBERTO(I,D): 2.1 cm2 Ao V2 VTI: 38.0 cm GILBERTO(V,D): 2.0 cm2 sev ratio: 0.72 GILBERTO indexed to BSA (cm^2/m^2): 1.4 MV E max matthew: 78.9 cm/sec TR max matthew: 293.1 cm/sec MV A max matthew: 99.9 cm/sec TR max P.4 mmHg MV E/A: 0.79 PA V2 max: 90.1 cm/sec Med Peak E' Matthew: 4.6 cm/sec PA V2 mean: 66.0 cm/sec E/E' med: 17.3 PA mean P.9 mmHg Lat Peak E' Matthew: 6.1 cm/sec PA pr(Accel): 34.5 mmHg E/E' lat: 13.0 E/e' average: 15.2 MV dec time: 0.25 sec SV(LVOT): 79.8 ml Reading Physician:11:40 AM
== END ==
PROVIDERS: PCP Internal Medicine; Referring Provider Internal Medicine Cardiovascular Disease; Visit Provider Internal Medicine Cardiovascular Disease
DX: I36.1 Nonrheumatic tricuspid (valve) insufficiency (principal); I34.0 Nonrheumatic mitral (valve) insufficiency
CPT/HCPCS: 93306